=== PATIENT | male | born 1965 | race Caucasian/White ===

== ENCOUNTER 2021-07-09 10:25 | Emergency (ER) | payer OTHER ==
[~2021-07-09] VITALS: Ht 163.8 cm; Wt 57.2 kg
[2021-07-09 10:39] VITALS: BP 127/89
--- NOTE | 2021-07-09 10:47 | NUR ---
pt ambulated to bed 01.
--- NOTE | 2021-07-09 11:11 | NUR ---
AT PT BEDSIDE
--- NOTE | 2021-07-09 11:12 | NUR ---
56 Y/O MALE BIB SELF FOR ABNORMAL LAB C/O BACK/NECK/KNEES/ANKLE/FEET PAIN X 2 YEARS AFTER " HAVING HERNIA SURGERY". PT DENIES ANY ALLEVIATING OR AGGREVAING FACTORS. PT IS ALERT AND ORIENTED X4. BED IN LOWEST POSITION. BED RAIL X1. PMH: GOUT MEDS: COLCHICINE, FAMOTIDINE NKA
[2021-07-09] MEDS ORDERED: FOLIC ACID 5 MG/ML SYR IM ONE (11:20)
[2021-07-09] MEDS ORDERED: THIAMINE 200 MG/2 ML VIAL IM ONE (11:20)
--- NOTE | 2021-07-09 11:28 | NUR ---
US /LAB AT PT BEDSIDE
[2021-07-09 11:57] LABS: BASOPHILS % (AUTO) 0.5 % (0.0-2.0); EOSINOPHILS # (AUTO) 0.1 K/uL (0-0.4); EOSINOPHILS % (AUTO) 2.2 % (0.0-4.0); HEMATOCRIT 35.5 % (36-52); LYMPHOCYTES # (AUTO) 1.8 K/uL (2.0-11.5); LYMPHOCYTES % (AUTO) 30.6 % (20.5-51.1); MEAN CORPUSCULAR HEMOGLOBIN 35 pg (27-31); MEAN CORPUSCULAR HGB CONC 34 g/dL (33-37); MEAN CORPUSCULAR VOLUME 102.6 fL (80-94); MONOCYTES # (AUTO) 0.7 K/uL (0.8-1.0); MONOCYTES % (AUTO) 11.8 % (1.7-9.3); NEUTROPHILS # (AUTO) 3.1 K/uL (1.8-7.7); NEUTROPHILS % (AUTO) 54.9 % (42.2-75.2); PLATELET COUNT (AUTO) 27 K/uL (140-450); RED BLOOD CELL COUNT(AUTO) 3.46 MIL/uL (4.20-6.10); RED CELL DISTRIBUTION WIDTH 15.3 % (11.6-13.7); WHITE BLOOD COUNT (AUTO) 5.7 K/uL (4.8-10.8)
[2021-07-09 12:20] LABS: ALBUMIN 3.3 g/dL (3.4-5.0); ANION GAP 13.4 (8-16); CREATININE 0.8 mg/dL (0.6-1.3); POTASSIUM 3.4 mmol/L (3.5-5.1); TOTAL BILIRUBIN 0.8 mg/dL (0.0-1.0)
[2021-07-09 13:18] VITALS: BP 126/83
--- NOTE | 2021-07-09 13:19 | NUR ---
Patient discharged with v/s stable. Written and verbal after care instructions given and explained. Patient verbalized understanding. Ambulatory with steady gait. All questions addressed prior to discharge. Advised to follow up with PMD.
== END 2021-07-09 13:19 | disposition home or self-care (01) ==
LOC: MED 10:25
DX: R94.5 Abnormal results of liver function studies (principal); D69.6 Thrombocytopenia, unspecified; F10.10 Alcohol abuse, uncomplicated; K76.89 Other specified diseases of liver; Y90.2 Blood alcohol level of 40-59 mg/100 ml
CPT/HCPCS: 36415; 76705; 80053; 83690; 85025; 96372; 99284; G0482; J3411; J3490; Q0092

== ENCOUNTER 2021-11-27 20:02 | Emergency (ER) | payer OTHER ==
[~2021-11-27] VITALS: Ht 162.6 cm; Wt 65.8 kg
[2021-11-27 20:18] VITALS: BP 134/90
--- NOTE | 2021-11-27 20:23 | NUR ---
TO LOBBY A/W BED AMBULATORY
[2021-11-27] MEDS ORDERED: NACL 0.9% 1,000 ML IV ONE (20:45)
--- NOTE | 2021-11-27 20:50 | NUR ---
PT AMBULATED TO BED #6
[2021-11-27 21:10] LABS: BASOPHILS % (AUTO) 0.7 % (0.0-2.0); EOSINOPHILS # (AUTO) 0.1 K/uL (0-0.4); EOSINOPHILS % (AUTO) 0.8 % (0.0-4.0); HEMATOCRIT 39.6 % (36-52); HEMOGLOBIN 13.7 g/dL (12.0-18.0); LYMPHOCYTES # (AUTO) 1.4 K/uL (2.0-11.5); LYMPHOCYTES % (AUTO) 19.5 % (20.5-51.1); MEAN CORPUSCULAR HEMOGLOBIN 36 pg (27-31); MEAN CORPUSCULAR HGB CONC 35 g/dL (33-37); MEAN CORPUSCULAR VOLUME 102.7 fL (80-94); MONOCYTES # (AUTO) 0.6 K/uL (0.8-1.0); MONOCYTES % (AUTO) 8.5 % (1.7-9.3); NEUTROPHILS # (AUTO) 5.2 K/uL (1.8-7.7); NEUTROPHILS % (AUTO) 70.5 % (42.2-75.2); PLATELET COUNT (AUTO) 49 K/uL (140-450); RED BLOOD CELL COUNT(AUTO) 3.86 MIL/uL (4.20-6.10); RED CELL DISTRIBUTION WIDTH 15.1 % (11.6-13.7); WHITE BLOOD COUNT (AUTO) 7.4 K/uL (4.8-10.8)
[2021-11-27 21:32] LABS: ALBUMIN 3.4 g/dL (3.4-5.0); ANION GAP 15.8 (8-16); ASPARTATE AMINOTRANSFERASE 106 U/L (15-37); CARBON DIOXIDE 33.2 mmol/L (21-32); CHLORIDE 95 mmol/L (98-107); CREATININE 1.6 mg/dL (0.6-1.3); GFR ARICAN-AMERICAN 58 mL/min (>90); GLUCOSE 132 mg/dL (74-106); SODIUM SERUM 140 mmol/L (136-145); UREA NITROGEN, BLOOD 14 mg/dL (7-18)
--- NOTE | 2021-11-27 21:53 | NUR ---
2ND EKG ORDERED [facility] EMT AT BEDSIDE
--- NOTE | 2021-11-27 22:00 | NUR ---
56YR OLD MALE BIB SELF C/O DIZZINESS AND FALLING TODAY. PT STATES HE FALLS OFTEN. KEANU EXTREMITIES WEAK . PT IS SHAKY. WAS WALKING INTO KITCHEN WHEN HIS LEGS GOT WEAK AND FALL. ABRASION ON TOP OF NOSE. DENIES LOC OR HITTING HEAD. PT ON BEDSIDE BACK STAYER. HOB ELEVATED . SIDE RAILS UP X2 BED AT LOWEST POSITION. NKDA NO MED HX
[2021-11-27 23:23] LABS: BARBITURATE, URINE NEGATIVE ng/ml (NEG <=200); BENZODIAZEPINE, URINE NEGATIVE ng/mL (NEG <=200); CANNABINOID, URINE NEGATIVE ng/mL (NEG <=50); COCAINE, URINE NEGATIVE ng/mL (NEG <=300); OPIATE, URINE NEGATIVE ng/mL (NEG <=2000); PHENCYCLIDINE SCREEN,URINE NEGATIVE ng/mL (NEG <=25)
--- NOTE | 2021-11-28 00:22 | NUR ---
PT SITTING UP IN BED. NO DISTRESS NOTED. PENDING DISPO
[2021-11-28 00:30] VITALS: BP 136/84
--- NOTE | 2021-11-28 00:33 | NUR ---
The patient's care was reviewed and supervised by Skye Hernandez RN.
== END 2021-11-28 00:30 | disposition home or self-care (01) ==
LOC: MED 20:02
DX: S09.90XA Unspecified injury of head, initial encounter (principal); R04.0 Epistaxis; K21.9 Gastro-esophageal reflux disease without esophagitis; F17.200 Nicotine dependence, unspecified, uncomplicated; Z72.89 Other problems related to lifestyle; X58.XXXA Exposure to other specified factors, initial encounter; Y93.89 Activity, other specified; Y92.89 Other specified places as the place of occurrence of the external cause; Y99.8 Other external cause status
CPT/HCPCS: 36415; 70450; 70486; 80053; 80305; 81002; 84484; 85025; 93005; 96360; 96361; 99285; G0482; J7030

== ENCOUNTER 2022-03-25 07:43 | Emergency (ER) | payer OTHER ==
[~2022-03-25] VITALS: Ht 166.1 cm; Wt 55.1 kg
[2022-03-25 07:47] VITALS: BP 110/79
--- NOTE | 2022-03-25 07:59 | NUR ---
57/M WALKED IN C/O DIZZINESS, LOSS OF BALANCE AND MULTIPLE FALLS WITH LAST FALL TODAY. DENIES LOC OR TRAUMA TO HEAD. PT REPORTS BACK PAIN AND SOB ONSET TODAY. DENIES NVD. AAO4, AMBULATORY, VITALS STABLE. PMH: LEFT HERNIA SURGERY 2 YEARS AGO
[2022-03-25] MEDS ORDERED: LIDOCAINE 5% 1 EA PATCH TP ONE (08:10)
[2022-03-25] MEDS ORDERED: NACL 0.9% 1,000 ML IV ONE (08:10)
--- NOTE | 2022-03-25 08:21 | NUR ---
IV ESTABLISHED TO RIGHT AC WITH 20G. XR AT BEDSIDE. EKG DONE AT BEDSIDE
--- NOTE | 2022-03-25 08:31 | NUR ---
BLOOD DRAWN AND SENT TO [facility]
[2022-03-25 08:48] LABS: BASOPHILS % (AUTO) 0.5 % (0.0-2.0); EOSINOPHILS % (AUTO) 0.7 % (0.0-4.0); HEMATOCRIT 28.2 % (36-52); HEMOGLOBIN 9.7 g/dL (12.0-18.0); LYMPHOCYTES # (AUTO) 1.3 K/uL (2.0-11.5); LYMPHOCYTES % (AUTO) 21.9 % (20.5-51.1); MEAN CORPUSCULAR HEMOGLOBIN 38 pg (27-31); MEAN CORPUSCULAR HGB CONC 35 g/dL (33-37); MEAN CORPUSCULAR VOLUME 109.7 fL (80-94); MONOCYTES # (AUTO) 0.6 K/uL (0.8-1.0); MONOCYTES % (AUTO) 9.8 % (1.7-9.3); NEUTROPHILS # (AUTO) 4.1 K/uL (1.8-7.7); NEUTROPHILS % (AUTO) 67.1 % (42.2-75.2); PLATELET COUNT (AUTO) 33 K/uL (140-450); RED BLOOD CELL COUNT(AUTO) 2.57 MIL/uL (4.20-6.10); RED CELL DISTRIBUTION WIDTH 16.2 % (11.6-13.7); WHITE BLOOD COUNT (AUTO) 6.1 K/uL (4.8-10.8)
[2022-03-25 09:00] LABS: ALBUMIN 3.2 g/dL (3.4-5.0); CARBON DIOXIDE 32.1 mmol/L (21-32); CREATININE 1.1 mg/dL (0.6-1.3); POTASSIUM 3.1 mmol/L (3.5-5.1)
[2022-03-25 10:00] VITALS: BP 137/65
[2022-03-25] MEDS ORDERED: POTASSIUM CHLORIDE 20% 40 MEQ/15 ML UDC PO ONE (10:15)
[2022-03-25] MEDS ORDERED: ACETAMINOPHEN 325 MG TAB PO ONE (11:00)
[2022-03-25] MEDS ORDERED: LID5T TP (11:11)
--- NOTE | 2022-03-25 11:30 | NUR ---
PT LEFT PRIOR TO DC INSTRUCTIONS. PATIENT CALLED IN BED AND LOBBY. NOWHERE TO BE SEEN. PT IV REMOVED PRIOR TO LEAVING.
== END 2022-03-25 11:30 | disposition home or self-care (01) ==
LOC: MED 07:43
DX: M54.6 Pain in thoracic spine (principal); R42 Dizziness and giddiness; K21.9 Gastro-esophageal reflux disease without esophagitis
CPT/HCPCS: 36415; 71045; 80053; 83880; 84484; 85025; 93005; 96360; 99285; Q0092; J7030